=== PATIENT | male | born 1950 | race Caucasian/White ===

== ENCOUNTER 2017-03-20 08:38 | Emergency (ER) | payer MEDICARE, BC ==
--- NOTE | 2017-03-24 18:55 | ER ---
ADMIT: 03/20/2017 RM/LOC: ER [facility] MR#: [id number] [address] [address] JESSICA SAGE [address] [place] [address] Emergency Room Report SEX: M AGE: 66 : 1950 DATE: 03/20/2017 ADDENDUM: This patient comes into the ER because he is having pain on the left side of his abdomen. He states it is a pressure type pain that feels like he is constipated; however, he had a large bowel movement this morning and he is not sure if that is the cause. He denies any difficulty urinating. He is nauseated and vomited 2 times. On physical exam, the patient is restless and grabbing at his left side and left flank area. CT scan showed a 2 mm stone at the UVJ. IV of normal saline was started. The patient refused any kind of medicine. He did not want to affect his driving. We did give him Tylenol IV. I wrote a prescription for [place]. He will need to strain his urine. He is to follow up with Urology in the next few days if he does not pass the stone. Please see my T-sheet. ISAEL Mccrary / Serge Paredes MD / anushal JOB #: [id number] CC: Serge Paredes MD, Attending Physician Keny Berry MD, Family Physician
== END 2017-03-20 11:30 | disposition home or self-care (01) ==
LOC: ER 08:38
DX: N20.1 Calculus of ureter (principal); I10 Essential (primary) hypertension; F17.210 Nicotine dependence, cigarettes, uncomplicated; Z79.82 Long term (current) use of aspirin; Z79.899 Other long term (current) drug therapy

== ENCOUNTER 2017-03-21 22:21 | Emergency (ER) | payer MEDICARE, BC ==
--- NOTE | 2017-03-22 02:39 | ER ---
ADMIT: 03/21/2017 RM/LOC: ER [facility] MR#: [id number] [address] [address] JESSICA SAGE [address] [place] [address] Emergency Room Report SEX: M AGE: 66 : 1950 DATE: 03/21/2017 The patient is a 66-year-old male with known renal colic here yesterday for same, found to have a distal left ureteral UVJ stone 1 mm with no hydro, presented at that time with complaint of constipation. Continues to have the rectal urge. Denies any fevers, chills, nausea, or vomiting. Exam remarkable for nontoxic, afebrile male. Reviewed CT, confirmed no significant stool burden. Rectal exam negative. Advised push fluids. Void frequently. Follow up with Dr. Valentino as needed. Blair Schreiber MD/ della JOB #: [id number] CC: Blair Schreiber MD, Attending Physician Og Valentino MD
== END 2017-03-21 22:57 | disposition home or self-care (01) ==
LOC: ER 22:21
DX: N20.1 Calculus of ureter (principal); K59.00 Constipation, unspecified; I10 Essential (primary) hypertension; F17.210 Nicotine dependence, cigarettes, uncomplicated